=== PATIENT | female | born 1970 | race Caucasian/White ===

== ENCOUNTER 2022-03-09 18:31 | Inpatient (IN) | payer OTHER ==
[~2022-03-09] VITALS: Ht 170.2 cm; Wt 175.5 kg
[~2022-03-09 18:31] MED LIST: FENTANYL CITRATE/PF 100MCG/2 ML INJ ONE; MIDAZOLAM HCL 2 MG/2 ML VIAL ONE
[2022-03-09] MEDS ORDERED: Morphine 4mg INJECTION 4 MG/ML INJ IV PRN (19:15)
[2022-03-09] MEDS ORDERED: ONDANSETRON HCL INJ 2MG/ML 2ML 2 MG/ML VIAL IV PRN (19:15)
[2022-03-09 19:23] LABS: BASOPHILS # (AUTO) 0.1 (0.0-0.1); BASOPHILS % 0.7 % (0.0-1.0); EOSINOPHILS # (AUTO) 0.2 (0.0-0.4); EOSINOPHILS % 2.1 % (0.0-6.0); HEMATOCRIT 31.9 % (34.2-44.1); HEMOGLOBIN 9.9 g/dL (12.0-16.0); LYMPHOCYTES # (AUTO) 1.7 (1.0-3.2); LYMPHOCYTES % 19.2 % (18.0-39.1); MEAN CORPUSCULAR HEMOGLOBIN 28.5 pg (28-32); MEAN CORPUSCULAR VOLUME 91.9 fL (81-99); MONOCYTES # (AUTO) 0.5 (0.2-0.8); MONOCYTES % 6.1 % (4.4-11.3); NEUTROPHILS # (AUTO) 6.1 (2.1-6.9); NEUTROPHILS % 71.2 % (38.7-80.0); PLATELET COUNT 588 x10e3/uL (140-360); RED BLOOD COUNT 3.47 x10e6/uL (3.6-5.1); RED CELL DISTRIBUTION WIDTH 14.7 % (11.7-14.4)
[2022-03-09 19:39] LABS: ALBUMIN 2.7 g/dL (3.5-5.0); ALBUMIN/GLOBULIN RATIO 0.5 (0.8-2.0); ANION GAP 16.1 mmol/L (8-16); CALCIUM 9.2 mg/dL (8.4-10.2); CREATININE, SERUM 0.87 mg/dL (0.57-1.11); POTASSIUM 4.1 mmol/L (3.5-5.1)
[2022-03-09 20:02] LABS: INR 1.06
[2022-03-09 20:03] LABS: PARTIAL THROMBOPLASTIN TIME 40.3 seconds (23.8-35.5)
[2022-03-09] MEDS ORDERED: FENTANYL CITRATE/PF 100MCG/2 ML INJ IV ONE (20:45)
[2022-03-09] MEDS ORDERED: HYDROMORPHONE 1MG/1ML INJ IV PRN (20:45)
[2022-03-09] MEDS ORDERED: FENTANYL CITRATE/PF 100MCG/2 ML INJ ONE (20:49)
[2022-03-09] MEDS ORDERED: ONDANSETRON HCL INJ 2MG/ML 2ML 2 MG/ML VIAL ONE (20:49)
[2022-03-09 22:41] VITALS: BP 133/62
[2022-03-09 23:00] VITALS: BP 133/62
[2022-03-09] MEDS: SODIUM CHLORIDE 0.9% 1000ML 1,000 ML IV SCH (23:53)
[2022-03-10] VITALS (7 sets, daily range): BP systolic 99–133; BP diastolic 61–74
[2022-03-10] MEDS ORDERED: ACETAMINOPHEN 325 MG TAB PO PRN (01:45)
[2022-03-10] MEDS ORDERED: ONDANSETRON HCL INJ 2MG/ML 2ML 2 MG/ML VIAL IV PRN (01:45)
[2022-03-10] MEDS ORDERED: DEXTROSE 50% SYRINGE 50 ML IV PRN (01:45)
[2022-03-10] MEDS ORDERED: POTASSIUM CHLORIDE 20 MEQ TAB CR PO PRN (01:45)
[2022-03-10] MEDS ORDERED: BENZONATATE 100 MG CAP PO PRN (01:45)
[2022-03-10] MEDS ORDERED: LIDOCAINE 4% PATCH TP PRN (01:45)
[2022-03-10] MEDS ORDERED: DIPHENHYDRAMINE HCL 25 MG CAP PO PRN (01:45)
[2022-03-10] MEDS ORDERED: DOCUSATE SODIUM 100 MG CAP PO PRN (01:45)
[2022-03-10] MEDS ORDERED: SIMETHICONE 80 MG CHEW PO PRN (01:45)
[2022-03-10] MEDS ORDERED: ALBUTEROL/IPRATROPIUM 3 ML NEB NEB PRN (01:45)
[2022-03-10] MEDS ORDERED: HYDRALAZINE HCL 20 MG/ML VIAL IV PRN (01:45)
[2022-03-10] MEDS ORDERED: ALBUTEROL0.63 MG/3 NEB (01:55)
[2022-03-10] MEDS ORDERED: NUCYNTA ER200 MG PO (01:55)
[2022-03-10] MEDS ORDERED: SYMBICORT 16010.2 GM INH (02:04)
[2022-03-10] MEDS ORDERED: BACLOFEN10 MG PO (02:04)
[2022-03-10] MEDS ORDERED: DOCUSATE SODIU100 MG PO (02:04)
[2022-03-10] MEDS ORDERED: CIMETIDINE200 MG PO (02:04)
[2022-03-10] MEDS ORDERED: TOPROL XL25 MG PO (02:04)
[2022-03-10] MEDS ORDERED: NEURONTIN400 MG PO (02:04)
[2022-03-10] MEDS ORDERED: BUSPIRONE HCL5 MG PO (02:04)
[2022-03-10] MEDS ORDERED: PENTOXIFYLLINE400 MG PO (02:04)
[2022-03-10] MEDS ORDERED: CYMBALTA30 MG PO (02:04)
[2022-03-10] MEDS ORDERED: ZYRTEC10 MG PO (02:04)
[2022-03-10] MEDS ORDERED: IBUPROFEN200 MG PO (02:04)
[2022-03-10] MEDS ORDERED: PROTONIX20 MG PO (02:04)
[2022-03-10] MEDS ORDERED: FEROSUL325 MG PO (02:04)
[2022-03-10] MEDS: SODIUM CHLORIDE 0.9% 1000ML 1,000 ML IV SCH ×3 (03:15→18:45)
[2022-03-10 03:26] LABS: CLARITY,URINE SL CLOUDY (CLEAR); COLOR,URINE YELLOW (YELLOW); KETONES,URINE TRACE (NEGATIVE); LEUKOCYTE ESTERASE ,URINE NEGATIVE (NEGATIVE); NITRITE,URINE NEGATIVE (NEGATIVE); PROTEIN,URINE DIPSTICK 1+ (NEGATIVE); URINE UROBILINOGEN 0.2 mg/dL (0.2 - 1)
[2022-03-10 03:31] LABS: RBC,URINE 0-5 /HPF (0-5); WBC,URINE (MAN) 0-5 /HPF (0-5)
[2022-03-10 03:32] LABS: AMORPHOUS SEDIMENT,URINE MANY (FEW); BACTERIA,URINE FEW /HPF; CALCIUM OXALATE CRYSTALS,UR MODERATE (FEW); EPITHELIAL CELLS,URINE MODERATE /LPF
[2022-03-10] MEDS: PANTOPRAZOLE SOD 40 MG TABEC PO SCH (07:30)
[2022-03-10] MEDS ORDERED: CEFAZOLIN SODIUM 2 GM ONE (09:51)
[2022-03-10] MEDS ORDERED: Vancomycin IV 1 GM VIAL ONE ×4 (09:51→11:48)
[2022-03-10] MEDS ORDERED: GENTAMICIN SULFATE 40 MG/ML 2 ML VIAL ONE (10:02)
[2022-03-10] MEDS ORDERED: Vancomycin IV 500 MG ONE (10:02)
[2022-03-10] MEDS ORDERED: TRANEXAMIC ACID 20 ML ONE (10:02)
[2022-03-10] MEDS ORDERED: ACETAMINOPHEN 1000 MG/100 ML 100 ML IV ONE (10:03)
[2022-03-10] MEDS ORDERED: SODIUM CHLORIDE 0.9% 500ML 500 ML ONE (10:09)
[2022-03-10] MEDS ORDERED: SODIUM CHLORIDE 0.9% 250ML 250 ML ONE (11:34)
[2022-03-10] MEDS ORDERED: HYDROGEN PEROXIDE 120 ML BTL ONE (11:34)
[2022-03-10] MEDS ORDERED: POVIDONE IODINE 0.05% 0.05 % ML PO ONE (12:59)
[2022-03-10] MEDS ORDERED: KETOROLAC TROMETHAMINE 30 MG/ML VIAL ONE (12:59)
[2022-03-10] MEDS ORDERED: SEVOFLURANE INHAL SOLN 250 ML PEN BTL ONE (12:59)
[2022-03-10] MEDS ORDERED: LIDOCAINE HCL 2% LOCAL INJ 5 ML SDV VIAL INJ ONE (12:59)
[2022-03-10] MEDS ORDERED: ONDANSETRON HCL INJ 2MG/ML 2ML 2 MG/ML VIAL ONE (12:59)
[2022-03-10] MEDS ORDERED: DEXAMETHASONE SOD PHOS INJ 4 MG/ML SDV ONE (12:59)
[2022-03-10] MEDS ORDERED: PROPOFOL IV EMULSION 10 MG/ML 20 ML VIAL ONE (12:59)
[2022-03-10] MEDS ORDERED: HYDROMORPHONE 2MG/ML 2 MG/ML ML ONE (13:21)
[2022-03-10] MEDS ORDERED: Vancomycin IV 2 GM in SODIUM CHLORIDE 0.9% 500ML 500 ML IV SCH ×2 (14:45→15:45)
[2022-03-10] MEDS ORDERED: HYDROMORPHONE 0.2MG/ML-SOD CHL 30ML PCA SYRINGE IV PRN (14:45)
[2022-03-10] MEDS ORDERED: NALOXONE HCL INJ 0.4 MG/ML AMP IV PRN (14:45)
[2022-03-10 15:47] LABS: BASOPHILS % 0.3 % (0.0-1.0); EOSINOPHILS % 0.2 % (0.0-6.0); HEMATOCRIT 31.4 % (34.2-44.1); HEMOGLOBIN 9.3 g/dL (12.0-16.0); LYMPHOCYTES # (AUTO) 0.6 (1.0-3.2); MEAN CORPUSCULAR HGB CONC 29.6 g/dL (31-35); MEAN CORPUSCULAR VOLUME 94.6 fL (81-99); MONOCYTES # (AUTO) 0.2 (0.2-0.8); MONOCYTES % 2.4 % (4.4-11.3); NEUTROPHILS # (AUTO) 7.8 (2.1-6.9); NEUTROPHILS % 89.2 % (38.7-80.0); PLATELET COUNT 552 x10e3/uL (140-360); RED BLOOD COUNT 3.32 x10e6/uL (3.6-5.1); RED CELL DISTRIBUTION WIDTH 14.6 % (11.7-14.4)
[2022-03-10 16:06] LABS: ALBUMIN 2.3 g/dL (3.5-5.0); ALBUMIN/GLOBULIN RATIO 0.5 (0.8-2.0); ANION GAP 11.6 mmol/L (8-16); CREATININE, SERUM 0.74 mg/dL (0.57-1.11); POTASSIUM 4.6 mmol/L (3.5-5.1)
[2022-03-10] MEDS: HYDROMORPHONE 1MG/1ML INJ IV PRN ×2 (18:50→23:21)
[2022-03-10] MEDS: Vancomycin IV 2 GM in SODIUM CHLORIDE 0.9% 500ML 500 ML IV SCH (20:50)
[2022-03-11] VITALS (8 sets, daily range): BP systolic 98–139; BP diastolic 54–76
[2022-03-11] MEDS: SODIUM CHLORIDE 0.9% 1000ML 1,000 ML IV SCH ×2 (05:47→11:54)
[2022-03-11] MEDS: HYDROMORPHONE 1MG/1ML INJ IV PRN ×4 (05:48→23:39)
[2022-03-11 07:22] LABS: BASOPHILS % 0.4 % (0.0-1.0); EOSINOPHILS % 0.4 % (0.0-6.0); HEMATOCRIT 27.6 % (34.2-44.1); HEMOGLOBIN 8.2 g/dL (12.0-16.0); LYMPHOCYTES # (AUTO) 1.2 (1.0-3.2); LYMPHOCYTES % 14.7 % (18.0-39.1); MEAN CORPUSCULAR HGB CONC 29.7 g/dL (31-35); MEAN CORPUSCULAR VOLUME 94.2 fL (81-99); MONOCYTES # (AUTO) 0.5 (0.2-0.8); MONOCYTES % 5.7 % (4.4-11.3); NEUTROPHILS # (AUTO) 6.5 (2.1-6.9); NEUTROPHILS % 78.1 % (38.7-80.0); PLATELET COUNT 543 x10e3/uL (140-360); RED BLOOD COUNT 2.93 x10e6/uL (3.6-5.1); RED CELL DISTRIBUTION WIDTH 14.6 % (11.7-14.4)
[2022-03-11 07:49] LABS: ANION GAP 13.1 mmol/L (8-16); CALCIUM 8.8 mg/dL (8.4-10.2); CREATININE, SERUM 0.71 mg/dL (0.57-1.11); POTASSIUM 4.1 mmol/L (3.5-5.1)
[2022-03-11] MEDS: Vancomycin IV 2 GM in SODIUM CHLORIDE 0.9% 500ML 500 ML IV SCH (08:35)
[2022-03-11] MEDS: PANTOPRAZOLE SOD 40 MG TABEC PO SCH (08:35)
[2022-03-11] MEDS ORDERED: FERROUS SULFATE 325 MG TAB PO SCH (13:45)
[2022-03-11] MEDS: MEROPENEM 1 GM in SODIUM CHLORIDE 0.9% 100 ML IV SCH ×2 (15:06→21:35)
[2022-03-11] MEDS: BUSPIRONE HCL 5 MG TAB PO SCH ×2 (15:09→21:35)
[2022-03-11] MEDS: RIVAROXABAN 10 MG TABLET PO SCH (16:47)
[2022-03-11] MEDS ORDERED: ENOXAPARIN SOD INJ 40 MG/0.4 ML SYR SC SCH (17:00)
[2022-03-11] MEDS: ACETAMINOPHEN 1000 MG/100 ML IV PRN (22:45)
[2022-03-12] VITALS (9 sets, daily range): BP systolic 111–155; BP diastolic 57–88
[2022-03-12] MEDS: HYDROMORPHONE 1MG/1ML INJ IV PRN ×5 (03:43→22:41)
[2022-03-12] MEDS: MEROPENEM 1 GM in SODIUM CHLORIDE 0.9% 100 ML IV SCH (06:25)
[2022-03-12] MEDS: BACLOFEN 10 MG TAB PO PRN ×2 (08:10→12:33)
[2022-03-12] MEDS: PANTOPRAZOLE SOD 40 MG TABEC PO SCH (08:10)
[2022-03-12] MEDS: BUSPIRONE HCL 5 MG TAB PO SCH ×3 (08:10→21:07)
[2022-03-12] MEDS: DULOXETINE HCL 30 MG DELAYED RELEASE PO SCH (08:10)
[2022-03-12] MEDS: METOPROLOL SUCCINATE 25 MG TAB XL PO SCH (08:11)
[2022-03-12 10:58] LABS: BASOPHILS % 0.3 % (0.0-1.0); EOSINOPHILS # (AUTO) 0.2 (0.0-0.4); HEMATOCRIT 28.9 % (34.2-44.1); HEMOGLOBIN 8.4 g/dL (12.0-16.0); LYMPHOCYTES # (AUTO) 1.2 (1.0-3.2); MEAN CORPUSCULAR HEMOGLOBIN 27.5 pg (28-32); MEAN CORPUSCULAR HGB CONC 29.1 g/dL (31-35); MEAN CORPUSCULAR VOLUME 94.8 fL (81-99); MONOCYTES # (AUTO) 0.5 (0.2-0.8); MONOCYTES % 6.3 % (4.4-11.3); NEUTROPHILS # (AUTO) 5.8 (2.1-6.9); NEUTROPHILS % 75.9 % (38.7-80.0); PLATELET COUNT 530 x10e3/uL (140-360); RED BLOOD COUNT 3.05 x10e6/uL (3.6-5.1); RED CELL DISTRIBUTION WIDTH 14.9 % (11.7-14.4)
[2022-03-12 11:17] LABS: ALBUMIN 2.1 g/dL (3.5-5.0); ALBUMIN/GLOBULIN RATIO 0.5 (0.8-2.0); CALCIUM 8.9 mg/dL (8.4-10.2); CREATININE, SERUM 0.7 mg/dL (0.57-1.11)
[2022-03-12] MEDS: ACETAMINOPHEN 1000 MG/100 ML IV PRN (12:32)
[2022-03-12] MEDS: KETOROLAC TROMETHAMINE 30 MG/ML VIAL IV PRN (12:32)
[2022-03-12] MEDS: RIVAROXABAN 10 MG TABLET PO SCH (17:07)
[2022-03-12] MEDS: MELATONIN 5 MG TABLET PO PRN (21:07)
[2022-03-13] VITALS (7 sets, daily range): BP systolic 109–148; BP diastolic 66–82
[2022-03-13] MEDS: HYDROMORPHONE 1MG/1ML INJ IV PRN ×4 (05:38→20:07)
[2022-03-13 06:06] LABS: BASOPHILS % 0.6 % (0.0-1.0); EOSINOPHILS # (AUTO) 0.2 (0.0-0.4); EOSINOPHILS % 2.7 % (0.0-6.0); HEMATOCRIT 28.1 % (34.2-44.1); HEMOGLOBIN 8.3 g/dL (12.0-16.0); LYMPHOCYTES # (AUTO) 1.6 (1.0-3.2); LYMPHOCYTES % 23.8 % (18.0-39.1); MEAN CORPUSCULAR HEMOGLOBIN 27.5 pg (28-32); MEAN CORPUSCULAR HGB CONC 29.5 g/dL (31-35); MONOCYTES # (AUTO) 0.4 (0.2-0.8); MONOCYTES % 6.4 % (4.4-11.3); NEUTROPHILS # (AUTO) 4.5 (2.1-6.9); NEUTROPHILS % 65.8 % (38.7-80.0); PLATELET COUNT 580 x10e3/uL (140-360); RED BLOOD COUNT 3.02 x10e6/uL (3.6-5.1); RED CELL DISTRIBUTION WIDTH 14.5 % (11.7-14.4)
[2022-03-13 06:30] LABS: ANION GAP 12.8 mmol/L (8-16); CALCIUM 8.4 mg/dL (8.4-10.2); CREATININE, SERUM 0.69 mg/dL (0.57-1.11); POTASSIUM 3.8 mmol/L (3.5-5.1)
[2022-03-13] MEDS: PANTOPRAZOLE SOD 40 MG TABEC PO SCH (07:30)
[2022-03-13] MEDS: CEFTRIAXONE 2 GM in SODIUM CHLORIDE 0.9% 100 ML IV SCH (09:00)
[2022-03-13] MEDS: BUSPIRONE HCL 5 MG TAB PO SCH ×3 (09:00→20:07)
[2022-03-13] MEDS: DULOXETINE HCL 30 MG DELAYED RELEASE PO SCH (09:00)
[2022-03-13] MEDS: METOPROLOL SUCCINATE 25 MG TAB XL PO SCH (09:00)
[2022-03-13] MEDS: KETOROLAC TROMETHAMINE 30 MG/ML VIAL IV PRN ×2 (12:24→21:39)
[2022-03-13] MEDS: RIVAROXABAN 10 MG TABLET PO SCH (16:20)
[2022-03-13] MEDS: MELATONIN 5 MG TABLET PO PRN (21:40)
[2022-03-14 01:00] VITALS: BP 130/67
[2022-03-14] MEDS: HYDROMORPHONE 1MG/1ML INJ IV PRN ×4 (01:00→14:09)
[2022-03-14 04:56] VITALS: BP 120/78
[2022-03-14 08:25] VITALS: BP 132/78
[2022-03-14] MEDS: DULOXETINE HCL 30 MG DELAYED RELEASE PO SCH (08:39)
[2022-03-14] MEDS: CEFTRIAXONE 2 GM in SODIUM CHLORIDE 0.9% 100 ML IV SCH (08:39)
[2022-03-14] MEDS: BUSPIRONE HCL 5 MG TAB PO SCH ×2 (08:40→15:10)
[2022-03-14] MEDS: METOPROLOL SUCCINATE 25 MG TAB XL PO SCH (08:40)
[2022-03-14] MEDS: PANTOPRAZOLE SOD 40 MG TABEC PO SCH (08:40)
[2022-03-14] MEDS: KETOROLAC TROMETHAMINE 30 MG/ML VIAL IV PRN (08:41)
[2022-03-14 08:58] VITALS: BP 132/78
[2022-03-14 11:47] VITALS: BP 118/81
[2022-03-14] MEDS ORDERED: ONDANSETRON HCL 4 MG ORAL DISINTEGRATING TAB PO PRN (13:15)
[2022-03-14] MEDS ORDERED: XARELTO10 MG PO (13:36)
== END 2022-03-14 16:00 | disposition home or self-care (01) | DRG 486 ==
LOC: ER 18:41 → ERHOLD 19:14 → MED/SURG 22:21
PROVIDERS: ADMIT Internal Medicine; ATTEND Internal Medicine
PROC: 02HV33Z Insertion of Infusion Device into Superior Vena Cava, Percutaneous Approach (ICD-10-PCS; 2022-03-10)
PROC: B54NZZA Ultrasonography of Left Upper Extremity Veins, Guidance (ICD-10-PCS; 2022-03-10)
PROC: 0SPC09Z Removal of Liner from Right Knee Joint, Open Approach (ICD-10-PCS; 2022-03-10)
PROC: 0SUV09Z Supplement Right Knee Joint, Tibial Surface with Liner, Open Approach (ICD-10-PCS; 2022-03-10)
PROC: 0JDN0ZZ Extraction of Right Lower Leg Subcutaneous Tissue and Fascia, Open Approach (ICD-10-PCS; 2022-03-10)
PROC: 3E0U029 Introduction of Other Anti-infective into Joints, Open Approach (ICD-10-PCS; 2022-03-10)
PROC: 3E0T3BZ Introduction of Anesthetic Agent into Peripheral Nerves and Plexi, Percutaneous Approach (ICD-10-PCS; principal; 2022-03-10 10:46)
DX: T84.53XA Infection and inflammatory reaction due to internal right knee prosthesis, initial encounter (principal); M86.9 Osteomyelitis, unspecified; Z68.43 Body mass index [BMI] 50.0-59.9, adult; J45.909 Unspecified asthma, uncomplicated; F41.9 Anxiety disorder, unspecified; F32.A Depression, unspecified; E66.01 Morbid (severe) obesity due to excess calories; Z20.822 Contact with and (suspected) exposure to COVID-19; I10 Essential (primary) hypertension; G89.4 Chronic pain syndrome; B96.89 Other specified bacterial agents as the cause of diseases classified elsewhere; Z90.49 Acquired absence of other specified parts of digestive tract; Z87.891 Personal history of nicotine dependence
CPT/HCPCS: 36415; 36569; 71045; 80048; 80053; 81001; 85025; 85610; 85651; 85730; 86140; 86850; 86900; 87071; 87075; 87186; 87205; 93005; 93971; 94799; 99252; 99284; C1713; J0696; J1100; J1170; J1580; J1885; J2001; J2185; J2250; J2405; J3010; J3370; J7030; J7040; J7050